=== PATIENT | female | born 1945 | race Caucasian/White ===

== ENCOUNTER 2016-07-05 13:43 | Inpatient (IN) ==
--- NOTE | 2016-07-05 14:09 | Emergency Department Note ---
Disposition Clinical Impression: Hydroureter on left Urinary tract infection Qualifiers: Urinary tract infection type: acute cystitis Hematuria presence: with hematuria Qualified Code(s): N30.01 - Acute cystitis with hematuria Disposition: Admitted As Inpatient Condition: Good Referrals: NO,PCP [Non-Partnered Physician] - Forms: Work/School Release, ED Satisfaction Letter Time of Disposition: 15:41 Abdominal Pain HPI - General Chief Complaint: ED Abdominal Pain Stated Complaint: passing kidney stones Time Seen by Provider: 07/05/16 14:07 Source: patient Mode of arrival: ambulatory Limitations: no limitations Nursing Notes Reviewed: Yes Vital Signs Reviewed: Yes - History of Present Illness Pt Subjective Complaint: flank pain Onset (ago): day(s) (1) Consistency: intermittent Location: L flank Pain Scale: 0 Quality: stabbing Radiation: LLQ Improves with: nothing Worsens with: nothing Associated symptoms: Reports: nausea, dysuria Treatments prior to arrival: none - Related Data Home Medications Medication Instructions Recorded Confirmed Diltiazem HCl [Diltiazem 24Hr Cd] 180 mg PO DAILY 01/04/15 05/23/15 Lisinopril [Zestril] 5 mg PO DAILY 01/04/15 05/23/15 Metformin [Glucophage] 500 mg PO BID 01/04/15 05/23/15 Simvastatin [Zocor] 10 mg PO HS 01/04/15 05/23/15 Allergies Allergy/AdvReac Type Severity Reaction Status Date / Time No Known Allergies Allergy Unverified 12/31/14 11:52 All systems ED: reviewed and negative except as stated. Constitutional: Denies: night sweats Cardiovascular: Denies: chest pain Gastrointestinal: Denies: diarrhea, hematemesis, melena, hematochezia Abdominal Pain PMH - Past Medical History Medical history: Reports: diabetes, hypertension Female Surgical History: Reports: other Psychiatric history: Reports: no psych history - Social History Smoking status: Never smoker Alcohol use: Reports: none Drug use: Reports: none Physical Exam - General Limitations: no limitations General appearance: alert, in no apparent distress - Head Head exam: atraumatic, normocephalic, normal inspection - Eye Eye exam: Present: normal appearance, PERRL, EOMI - Expanded Eye Exam Pupils: Left: reactive - ENT ENT exam: normal exam, normal oropharynx, mucous membranes moist - Expanded ENT Exam External ear exam: Present: normal external inspection Mouth exam: Present: normal external inspection Teeth exam: Present: normal inspection Throat exam: Present: normal inspection - Neck Neck exam: Present: normal inspection, full ROM, trachea midline - Chest Chest inspection: Present: normal inspection, symmetric chest wall rise - Respiratory Respiratory exam: Present: normal lung sounds bilaterally - Cardiovascular Cardiovascular exam: Present: regular rate, normal rhythm, normal heart sounds - Abdominal Exam Abdominal exam: Present: soft, Non-Tender. Absent: tenderness, distention, guarding, rebound, rigidity - Extremities Exam Extremities exam: Present: normal inspection, full ROM. Absent: tenderness, pedal edema - Expanded Upper Extremity Exam Shoulder exam: Present: normal inspection, full ROM Arm exam: Present: normal inspection, full ROM Elbow exam: Present: normal inspection, full ROM Forearm/Wrist exam: Present: normal inspection, full ROM Hand exam: Present: normal inspection, full ROM Vascular exam: Normal: capillary refill, radial pulse - Expanded Lower Extremity Exam Hip/Pelvis exam: Present: normal inspection, full ROM Upper leg exam: Present: normal inspection, full ROM Knee exam: Present: normal inspection, full ROM Lower leg exam: Present: normal inspection, full ROM Ankle exam: Present: normal inspection, full ROM Foot/toe exam: Present: normal inspection, full ROM Neurovascular/Tendon exam: Absent: motor deficit, sensory deficit, tendon deficit - Back Exam Back exam: Present: normal inspection, full ROM. Absent: tenderness - Neurological Exam Neurological exam: Present: alert, oriented X3 - Expanded Neurological Exam Patient oriented to: Present: person, place, time Coma Scale Eye Opening: Spontaneous Coma Scale Motor Response: Obeys Commands Coma Scale Verbal Response: Oriented Coma Scale Total: 15 - Psychiatric Psychiatric exam: Present: normal affect, normal mood - Skin Skin exam: Present: warm, dry, intact, normal color Course - Consultations Consultation #1: Dr. Potter would like to admit to the hospitalist service keep the patient nothing by mouth she will need a renal stent IV antibiotic's were given. Time: 15:39 Vital Signs Temperature 101.6 F H 07/05/16 14:01 Pulse Rate 104 07/05/16 14:01 Respiratory Rate 22 07/05/16 14:01 Blood Pressure 136/86 07/05/16 14:01 O2 Sat by Pulse Oximetry 94 07/05/16 14:01 Temperature 101.6 F H 07/05/16 14:01 Pulse Rate 87 07/05/16 15:10 Respiratory Rate 18 07/05/16 15:10 Blood Pressure 127/77 07/05/16 15:10 O2 Sat by Pulse Oximetry 97 07/05/16 15:10 Oxygen Delivery Oxygen Delivery Room Air Abdominal Pain - Differential Diagnosis Differential Diagnosis: Likely: calculus of kidney, constipation, colonic obstruction, diverticulitis, ischemic bowel, pancreatitis, small bowel obstruction - Medical Records Medical records reviewed: Yes I reviewed the patient's medical records. - Lab Data Lab results reviewed: Yes I reviewed the patient's lab results. Result diagrams: 07/05/16 14:22 07/05/16 14:22 Lab Results 07/05/16 07/05/16 07/05/16 Range/Units 14:22 14:22 14:22 WBC 12.6 H (4.3-11.1) K/mcL RBC 4.91 (3.82-4.97) M/mcL Hgb 13.8 (11.5-15.4) g/dL Hct 42.3 (35.3-44.9) % MCV 86.2 (83.0-100.0) fL MCH 28.1 (28.0-33.3) pg MCHC 32.6 (31.6-35.5) g/dL RDW 13.7 (11.5-14.5) % Plt Count 173 (140-400) K/mcL MPV 9.9 (9.4-12.4) fL Immature Gran % 0.6 (0-4) % Seg Neutrophils % 87.2 % Lymphocytes % 6.1 % Monocytes % 5.9 % Eosinophils % 0.0 % Basophils % 0.2 % Neutrophils # 11.0 H (1.6-8.9) K/mcL Lymphocytes # 0.8 (0.6-4.6) K/mcL Monocytes # 0.7 (0.0-1.3) K/mcL Eosinophils # 0.0 (0.0-0.6) K/mcL Basophils # 0.0 (0.0-0.2) K/mcL Sodium 138 (136-145) mEq/L Potassium 3.5 (3.5-4.5) mEq/L Chloride 102 (98-109) mEq/L Carbon Dioxide 26 (19-29) mEq/L BUN 16 (7-20) mg/dL Creatinine 0.82 (0.57-1.11) mg/dL Est GFR ( Amer) > 60 (> 60) Est GFR (Non-Af Amer) > 60 (> 60) BUN/Creatinine Ratio 20 (6-26) Glucose 122 H (70-99) mg/dL Calculated Osmolality 288 (280-300) Lactic Acid 1.2 (0.5-2.2) mmol/L Calcium 9.7 (8.6-10.8) mg/dL Total Bilirubin 1.4 H (0.2-1.2) mg/dL Direct Bilirubin 0.6 H (0.0-0.5) mg/dL Indirect Bilirubin 0.8 (0.0-1.2) mg/dL AST 18 (5-34) Units/L ALT 25 (0-55) Units/L Alkaline Phosphatase 83 (38-126) Units/L Serum Total Protein 7.4 (6.0-8.3) g/dL Albumin 3.7 (3.5-5.0) g/dL Globulin 3.7 H (2.4-3.5) g/dL Albumin/Globulin Ratio 1.0 L (1.1-2.2) Amylase 22 L (25-125) Units/L Lipase 10 (8-78) Units/L Urine Color (Yellow) Urine Clarity (Clear) Urine pH (5.0-8.0) pH Units Ur Specific [place] (1.010-1.025) Urine Protein (Neg-Trace) mg/dL Urine Glucose (UA) (Normal) mg/dL Urine Ketones (Negative) mg/dL Urine Blood (Negative) Urine Nitrite (Negative) Urine Bilirubin (Negative) Urine Urobilinogen (Normal) mg/dL Ur Leukocyte Esterase (Negative) Urine Microscopic RBC (0-3) per hpf Urine Microscopic WBC (0-3) per hpf Ur Squamous Epith Cells (None-Few) per lpf Urine Bacteria (None-Few) per hpf Hyaline Casts (None-Few) per lpf Ur Culture Indicated? (NO) 07/05/16 Range/Units 14:32 WBC (4.3-11.1) K/mcL RBC (3.82-4.97) M/mcL Hgb (11.5-15.4) g/dL Hct (35.3-44.9) % MCV (83.0-100.0) fL MCH (28.0-33.3) pg MCHC (31.6-35.5) g/dL RDW (11.5-14.5) % Plt Count (140-400) K/mcL MPV (9.4-12.4) fL Immature Gran % (0-4) % Seg Neutrophils % % Lymphocytes % % Monocytes % % Eosinophils % % Basophils % % Neutrophils # (1.6-8.9) K/mcL Lymphocytes # (0.6-4.6) K/mcL Monocytes # (0.0-1.3) K/mcL Eosinophils # (0.0-0.6) K/mcL Basophils # (0.0-0.2) K/mcL Sodium (136-145) mEq/L Potassium (3.5-4.5) mEq/L Chloride (98-109) mEq/L Carbon Dioxide (19-29) mEq/L BUN (7-20) mg/dL Creatinine (0.57-1.11) mg/dL Est GFR ( Amer) (> 60) Est GFR (Non-Af Amer) (> 60) BUN/Creatinine Ratio (6-26) Glucose (70-99) mg/dL Calculated Osmolality (280-300) Lactic Acid (0.5-2.2) mmol/L Calcium (8.6-10.8) mg/dL Total Bilirubin (0.2-1.2) mg/dL Direct Bilirubin (0.0-0.5) mg/dL Indirect Bilirubin (0.0-1.2) mg/dL AST (5-34) Units/L ALT (0-55) Units/L Alkaline Phosphatase (38-126) Units/L Serum Total Protein (6.0-8.3) g/dL Albumin (3.5-5.0) g/dL Globulin (2.4-3.5) g/dL Albumin/Globulin Ratio (1.1-2.2) Amylase (25-125) Units/L Lipase (8-78) Units/L Urine Color Yellow (Yellow) Urine Clarity Cloudy A (Clear) Urine pH 6.5 (5.0-8.0) pH Units Ur Specific [place] 1.017 (1.010-1.025) Urine Protein 30 H (Neg-Trace) mg/dL Urine Glucose (UA) Normal (Normal) mg/dL Urine Ketones Negative (Negative) mg/dL Urine Blood Small H (Negative) Urine Nitrite Negative (Negative) Urine Bilirubin Negative (Negative) Urine Urobilinogen Normal (Normal) mg/dL Ur Leukocyte Esterase Large H (Negative) Urine Microscopic RBC 3-5 H (0-3) per hpf Urine Microscopic WBC TNTC H (0-3) per hpf Ur Squamous Epith Cells Many H (None-Few) per lpf Urine Bacteria Many H (None-Few) per hpf Hyaline Casts None Seen (None-Few) per lpf Ur Culture Indicated? YES A (NO) - Radiology Data Radiology results reviewed: Yes I reviewed the patient's radiology results.
[2016-07-05] MEDS ORDERED: 0.9 % Sodium Chloride 1,000 ML IVC ONE (14:17)
[2016-07-05] MEDS ORDERED: Ondansetron 4 MG/2 ML VIAL IVP ONE ×2 (14:17→17:05)
[2016-07-05 14:31] LABS: Basophils % 0.2 %; Hematocrit 42.3 % (35.3-44.9); Hemoglobin 13.8 g/dL (11.5-15.4); Immature Granulocytes % 0.6 % (0-4); Lymphocytes # 0.8 K/mcL (0.6-4.6); Lymphocytes % 6.1 %; Mean Corpuscular HGB Conc 32.6 g/dL (31.6-35.5); Mean Corpuscular Hemoglobin 28.1 pg (28.0-33.3); Mean Corpuscular Volume 86.2 fL (83.0-100.0); Mean Platelet Volume 9.9 fL (9.4-12.4); Monocytes # 0.7 K/mcL (0.0-1.3); Monocytes % 5.9 %; Platelet Count 173 K/mcL (140-400); Red Blood Count 4.91 M/mcL (3.82-4.97); Red Cell Distribution Width 13.7 % (11.5-14.5); Segmented Neutrophils % 87.2 %
[2016-07-05 14:41] LABS: Bilirubin,Urine Negative (Negative); Blood,Urine Small (Negative); Clarity,Urine Cloudy (Clear); Color,Urine Yellow (Yellow); Glucose,Urine (UA) Normal (Normal); Ketones,Urine Negative (Negative); Leukocyte Esterase,Urine Large (Negative); Nitrite,Urine Negative (Negative); PH,Urine 6.5 pH Units (5.0-8.0); Protein,Urine 30 mg/dL (Neg-Trace); Specific Gravity,Urine 1.017 (1.010-1.025); Urobilinogen,Urine Normal (Normal)
[2016-07-05 14:44] LABS: Bacteria,Urine Many per hpf (None-Few); Hyaline Casts,Urine None Seen per lpf (None-Few); Squamous Epithelial Cell,Urine Many per lpf (None-Few); WBC,Urine TNTC per hpf (0-3)
[2016-07-05 14:45] LABS: Alanine Aminotransferase 25 Units/L (0-55); Albumin 3.7 g/dL (3.5-5.0); Alkaline Phosphatase 83 Units/L (38-126); Amylase 22 Units/L (25-125); Aspartate Amino Transferase 18 Units/L (5-34); BUN/Creatinine Ratio 20 (6-26); Bilirubin,Direct 0.6 mg/dL (0.0-0.5); Bilirubin,Indirect 0.8 mg/dL (0.0-1.2); Bilirubin,Total 1.4 mg/dL (0.2-1.2); Blood Urea Nitrogen 16 mg/dL (7-20); Calcium 9.7 mg/dL (8.6-10.8); Carbon Dioxide 26 mEq/L (19-29); Chloride 102 mEq/L (98-109); Globulin 3.7 g/dL (2.4-3.5); Glucose 122 mg/dL (70-99); Lipase 10 Units/L (8-78); Osmolality,Calculated 288 (280-300); Potassium 3.5 mEq/L (3.5-4.5); Sodium 138 mEq/L (136-145); Total Protein 7.4 g/dL (6.0-8.3); eGFR For African Americans > 60 (> 60); eGFR For Non-African Americans > 60 (> 60)
[2016-07-05] MEDS ORDERED: Acetaminophen 325 MG TABLET PO ONE (15:38)
--- NOTE | 2016-07-05 16:04 | Internal Med History&Physical ---
Date of Encounter: 07/05/16 Time of Encounter: 16:00 Assessment and Plan (1) Urinary tract infection Current visit: Yes Status: Acute Patient with signs of acute urinary tract infection related to possible recently passed stone and nephrolithiasis with hydroureter and hydronephrosis. We will treat with IV antibiotics. Follow urine cultures. IV hydration. Qualifiers: Urinary tract infection type: acute pyelonephritis Qualified Code(s): N10 - Acute pyelonephritis (2) Hydronephrosis of left kidney Current visit: Yes Status: Acute Most likely related to recently passed kidney stone. Urology consulted follow recommendations. (3) Diabetes Current visit: Yes Status: Chronic Patient with chronic diabetes. Will place on diabetic diet when patient is able to eat. Monitor blood sugars closely. Sliding scale insulin. Qualifiers: Diabetes mellitus type: type 2 Diabetes mellitus complication status: without complication Diabetes mellitus chcf insulin use: without chcf use Qualified Code(s): E11.9 - Type 2 diabetes mellitus without complications (4) Hyperlipemia Current visit: No Status: Chronic Continue simvastatin. Qualifiers: Hyperlipidemia type: mixed hyperlipidemia Qualified Code(s): E78.2 - Mixed hyperlipidemia (5) Hydroureter on left Current visit: Yes Status: Acute Urology consulted. We will follow recommendations. Internal Medicine - H&P: HPI Chief complaint: Left flank pain Admitted From: Emergency Dept Plans for Post Hospital Care: Home History of present illness: Ms. Sewell is a 70 year old female patient with a history of diabetes mellitus type 2, hypertension, hyperlipidemia, prior nephrolithiasis presented to the ER with complaints of left-sided flank pain. This has been going on for 2 days with progressive worsening. Since this morning she is also been feeling feverish along with chills. She denies any hematuria or dysuria. She feels nauseated. Poor appetite as a result of pain. She has not had any kidney stones for a few years now. She is not on any medications to prevent nephrolithiasis either. Past Med Surg Social Fam HX - Past Medical History Attestation: Yes The following information was validated with the patient. Source: patient Medical history: diabetes, hyperlipidemia, hypertension, other (Nephrolithiasis) Psychiatric history: no psych history - Social History Smoking Status: Never smoker Smokeless Tobacco Status: No Alcohol use: none Drug use: none - Family History Father Hx Family Cardiac Disorders: Yes - Additional Family History Additional family history: Reviewed and found to be noncontributory at this time Internal Medicine - H&P: Meds Diltiazem HCl [Diltiazem 24Hr Cd] 180 mg PO DAILY 01/04/15 [History] Lisinopril [Zestril] 5 mg PO DAILY 01/04/15 [History] Metformin [Glucophage] 500 mg PO BID 01/04/15 [History] Simvastatin [Zocor] 10 mg PO HS 01/04/15 [History] Allergies No Known Allergies Allergy (Unverified 12/31/14 11:52) All Systems PM: A 10-system review of systems was performed and is negative for pertinent findings except as documented above in the HPI. - Constitutional Constitutional: anorexia, chills, fever(s), malaise, no night sweats - EENT Eyes: no change in vision, no discharge, no pain, no photophobia Ears: no ear discharge, no ear pain, no tinnitus Nose, mouth and throat: no dysphagia, no nasal discharge, no neck pain, no sore throat - Cardiovascular Cardiovascular ROS IM: no chest pain, no diaphoresis, no dyspnea, no lightheadedness, no palpitations, no syncope - Respiratory Respiratory: no cough, no dyspnea, no wheezing, no excessive phlegm production - Gastrointestinal Gastrointestinal: no abdominal pain, no diarrhea, no hematemesis, no hematochezia, no melena, no nausea, no vomiting - Genitourinary Genitourinary: flank pain (Left), no change in urinary stream, no dysuria, no hematuria - Musculoskeletal Musculoskeletal ROS IM: no numbness, no tingling - Integumentary Integumentary IM: no rash, no unusual bruising - Neurological Neurological ROS: no confusion, no convulsions, no focal weakness, no numbness, no tingling, no tremor(s) - Hematologic/Lymphatic Hematologic/Lymphatic: no easy bruising - Constitutional Vitals: Temp Pulse Resp BP Pulse Ox 101.6 F H 87 18 127/77 97 07/05/16 14:01 07/05/16 15:10 07/05/16 15:10 07/05/16 15:10 07/05/16 15:10 General appearance: Present: cooperative, A&O X 3, answers questions appropriately - Neck Neck exam general surgery: Present: supple, trachea midline. Absent: lymphadenopathy - Respiratory Respiratory exam: Present: CTAB. Absent: accessory muscle use, rales, rhonchi, wheezes - Cardiovascular Cardiovascular exam: Present: RRR, +S1, +S2. Absent: diastolic murmur, gallop, rubs, systolic murmur - GI/Abdominal GI/Abdominal exam: Present: normal bowel sounds, soft, no peritoneal signs. Absent: distended, tenderness Additional comments: Left upper quadrant tenderness - Additional comments: No CVA tenderness - Extremities Exam Extremities exam: Present: warm, radial pulses palpable and symetrical. Absent : calf tenderness, cyanotic, pedal edema - Neurological Exam Neurological exam: Present: CN II-XII intact, oriented X3, no focal deficits. Absent: facial droop, speech deficit - Skin Skin exam: Present: dry, intact Internal Med - H&P Results - Labs CBC & Chem 7: 07/05/16 14:22 07/05/16 14:22 Labs: Short CBC 07/05/16 Range/Units 14:22 WBC 12.6 H (4.3-11.1) K/mcL Hgb 13.8 (11.5-15.4) g/dL Hct 42.3 (35.3-44.9) % Plt Count 173 (140-400) K/mcL Neutrophils # 11.0 H (1.6-8.9) K/mcL BMP 07/05/16 14:22 Sodium 138 Potassium 3.5 Chloride 102 Carbon Dioxide 26 BUN 16 Creatinine 0.82 Glucose 122 H Calcium 9.7 Liver Function 07/05/16 Range/Units 14:22 Total Bilirubin 1.4 H (0.2-1.2) mg/dL Direct Bilirubin 0.6 H (0.0-0.5) mg/dL AST 18 (5-34) Units/L ALT 25 (0-55) Units/L Alkaline Phosphatase 83 (38-126) Units/L Albumin 3.7 (3.5-5.0) g/dL Urine 07/05/16 Range/Units 14:32 Urine Color Yellow (Yellow) Urine Clarity Cloudy A (Clear) Urine pH 6.5 (5.0-8.0) pH Units Ur Specific [place] 1.017 (1.010-1.025) Urine Protein 30 H (Neg-Trace) mg/dL Urine Glucose (UA) Normal (Normal) mg/dL - Impressions ITS Impressions Abdomen/Pelvis CT 07/05/16 14:20 IMPRESSION: 1. Moderate to severe left-sided hydronephrosis and moderate left hydroureter. No definite ureteral stone is identified. Innumerable pelvic phleboliths do limit evaluation of the distal left ureter. Findings may potentially reflect recently passed stone. 2. Bilateral nephrolithiasis. 3. Cholelithiasis with 3 mm stone identified at the level of the proximal common bile duct compatible with choledocholithiasis. No biliary ductal dilatation identified. 4. Hepatic steatosis. 5. Diverticulosis without evidence for diverticulitis. D/ / Brayden Knutson MD / Brayden Knutson MD Interpreting Provider: Brayden Knutson MD - Attending Attestation This document has been at least partially created by [employer] voice recognition technology by Dr. Bowman. Errors in grammar, wording or other phrases may exist. If errors are found after the documentation is signed, they will be addressed individually in the addendum section of this document when appropriate.
[2016-07-05] MEDS ORDERED: Ondansetron 4 MG/2 ML VIAL IVP PRN ×2 (16:11→18:18)
[2016-07-05] MEDS ORDERED: *HR* Morphine 2 MG/ML SYRINGE IVP PRN ×3 (16:11→18:18)
[2016-07-05] MEDS ORDERED: Naloxone 0.4 MG/ML INJ IVP PRN ×2 (16:11→18:18)
[2016-07-05] MEDS ORDERED: *HR* Dextrose 50 % in Water (Syg) 50 ML SYRINGE IVP PRN ×2 (16:13→18:18)
[2016-07-05] MEDS ORDERED: D5% in Water 1,000 ML IVC PRN ×2 (16:13→18:18)
[2016-07-05] MEDS ORDERED: Dextrose Gel 15 GM PO PRN ×4 (16:13→18:18)
[2016-07-05] MEDS ORDERED: 0.9 % Sodium Chloride 1,000 ML IVC SCH (16:15)
[2016-07-05] MEDS ORDERED: *HR* FentaNYL (PF) 100 MCG/2 ML VIAL ONE (16:23)
[2016-07-05] MEDS ORDERED: *HR* Succinylcholine 200 MG/10 ML VIAL IVP ONE (16:24)
[2016-07-05] MEDS ORDERED: *HR* Propofol 200 MG/20 ML VIAL IVP ONE (16:24)
[2016-07-05] MEDS ORDERED: Lidocaine -MPF 2% 2 ML VIAL ONE (16:24)
--- NOTE | 2016-07-05 16:38 | Urology - Consult Note ---
Date of Encounter: 07/05/16 Time of Encounter: 16:35 - Assessment and Plan (1) Ureteral stone Current Visit: Yes Status: Acute Assessment and plan: 70 year old woman presents with left flank pain and fevers. CT shows a distal left ureteral stone and evidence of left hydronephrosis. I recommend proceeding with a cystoscopy and left ureteral stent placement. If the stone is quite distal, we will try to do distal ureteroscopy and stone extraction using the laser. I informed her of the risks of the surgery which include, but are not limited to bleeding, infection, injury to other structures , need for further procedures, stent irritation, need for open repair, residual stones, need for nephrostomy tube, and the risk of anesthesia. She is willing to proceed. (2) Urinary tract infection Current Visit: Yes Status: Acute Assessment and plan: Patient received Ceftriaxone. Will follow up urine cultures. Qualifiers: Urinary tract infection type: acute pyelonephritis Qualified Code(s): N10 - Acute pyelonephritis Urology CN:HPI Consult date: 07/05/16 Reason for consult Urology: Other (uti, ureteral stone) Requesting physician: Solomon Comer History of present illness: 70 year old woman with a known history of nephrolithiasis presents with a 1-2 day history of left lower quadrant pain. It became more severe today. She noted some nausea and vomiting. The pain is sharp and radiates to the groin. She typically follows with Dr. Doshi for her sotne issues. Pain medication has improved the pain. She reports some subjective chills and has a fever. I reviewed her CT scan which shows left hydroureteronephrosis with a distal left ureteral stone. There are a lot of phleboliths present. Past Med Surg Social Fam HX - Past Medical History Medical history: diabetes, hyperlipidemia, hypertension, other (Nephrolithiasis) Psychiatric history: no psych history - Social History Smoking Status: Never smoker Smokeless Tobacco Status: No Alcohol use: none Drug use: none - Family History Father Hx Family Cardiac Disorders: Yes Medications and Allergies Metformin [Glucophage] 500 mg PO BID 01/04/15 [History] Simvastatin [Zocor] 10 mg PO HS 01/04/15 [History] Diltiazem CD (24hr) [Cardizem CD] 120 mg PO DAILY 07/05/16 [History] Lisinopril [Zestril] 20 mg PO DAILY 07/05/16 [History] Allergies No Known Allergies Allergy (Unverified 12/31/14 11:52) Review of Systems - Constitutional chills, fever(s) - EENT Nose, mouth and throat: no dizziness - Cardiovascular no chest pain - Respiratory no dyspnea - Gastrointestinal nausea, no vomiting - Genitourinary Genitourinary: flank pain, no hematuria - Musculoskeletal no back pain - Integumentary no erythema, no rash - Neurological no weakness - Psychiatric no suicidal ideation - Hematologic/Lymphatic no easy bleeding - Allergic/Immunologic no wheezing Exam Initial Vital Signs Temp Pulse Resp BP Pulse Ox 101.6 F H 104 22 136/86 94 07/05/16 14:01 07/05/16 14:01 07/05/16 14:01 07/05/16 14:01 07/05/16 14:01 - General physical appearance Present: well developed, well nourished, no distress - Eyes Absent: icteric - ENT Present: normal mucosa - Neck Present: trachea midline - Respiratory Present: normal respiratory effort - Cardiovascular Cardiovascular exam IM: RRR - Abdomen Abdomen: Present: soft Urology Results - Labs 07/05/16 14:22 07/05/16 14:22 Abnormal lab results WBC 12.6 K/mcL (4.3-11.1) H 07/05/16 14:22 Neutrophils # 11.0 K/mcL (1.6-8.9) H 07/05/16 14:22 Glucose 122 mg/dL (70-99) H 07/05/16 14:22 Total Bilirubin 1.4 mg/dL (0.2-1.2) H 07/05/16 14:22 Direct Bilirubin 0.6 mg/dL (0.0-0.5) H 07/05/16 14:22 Globulin 3.7 g/dL (2.4-3.5) H 07/05/16 14:22 Albumin/Globulin Ratio 1.0 (1.1-2.2) L 07/05/16 14:22 Amylase 22 Units/L (25-125) L 07/05/16 14:22 Urine Clarity Cloudy (Clear) A 07/05/16 14:32 Urine Protein 30 mg/dL (Neg-Trace) H 07/05/16 14:32 Urine Blood Small (Negative) H 07/05/16 14:32 Ur Leukocyte Esterase Large (Negative) H 07/05/16 14:32 Urine Microscopic RBC 3-5 per hpf (0-3) H 07/05/16 14:32 Urine Microscopic WBC TNTC per hpf (0-3) H 07/05/16 14:32 Ur Squamous Epith Cells Many per lpf (None-Few) H 07/05/16 14:32 Urine Bacteria Many per hpf (None-Few) H 07/05/16 14:32 Ur Culture Indicated? YES (NO) A 07/05/16 14:32 Diabetes panel 07/05/16 Range/Units 14:22 Sodium 138 (136-145) mEq/L Potassium 3.5 (3.5-4.5) mEq/L Chloride 102 (98-109) mEq/L Carbon Dioxide 26 (19-29) mEq/L BUN 16 (7-20) mg/dL Creatinine 0.82 (0.57-1.11) mg/dL Glucose 122 H (70-99) mg/dL Calcium 9.7 (8.6-10.8) mg/dL AST 18 (5-34) Units/L ALT 25 (0-55) Units/L Alkaline Phosphatase 83 (38-126) Units/L Albumin 3.7 (3.5-5.0) g/dL Calcium panel 07/05/16 Range/Units 14:22 Calcium 9.7 (8.6-10.8) mg/dL Albumin 3.7 (3.5-5.0) g/dL Pituitary panel 07/05/16 Range/Units 14:22 Sodium 138 (136-145) mEq/L Potassium 3.5 (3.5-4.5) mEq/L Chloride 102 (98-109) mEq/L Carbon Dioxide 26 (19-29) mEq/L BUN 16 (7-20) mg/dL Creatinine 0.82 (0.57-1.11) mg/dL Glucose 122 H (70-99) mg/dL Calcium 9.7 (8.6-10.8) mg/dL Adrenal panel 07/05/16 Range/Units 14:22 Sodium 138 (136-145) mEq/L Potassium 3.5 (3.5-4.5) mEq/L Chloride 102 (98-109) mEq/L Carbon Dioxide 26 (19-29) mEq/L BUN 16 (7-20) mg/dL Creatinine 0.82 (0.57-1.11) mg/dL Glucose 122 H (70-99) mg/dL Calcium 9.7 (8.6-10.8) mg/dL Total Bilirubin 1.4 H (0.2-1.2) mg/dL AST 18 (5-34) Units/L ALT 25 (0-55) Units/L Alkaline Phosphatase 83 (38-126) Units/L Albumin 3.7 (3.5-5.0) g/dL All other labs normal. - Imaging CT scan - abdomen: report reviewed, image reviewed CT scan - pelvis: report reviewed, image reviewed Consult Discharge Plan - Plan Referrals: NO,PCP [Non-Partnered Physician] -
--- NOTE | 2016-07-05 17:00 | Anesthesia Evaluation PreOp ---
Date of Encounter: 07/05/16 Time of Encounter: 16:58 - Past History Planned Operation: Cystoscopy Cardiac History: HTN, Hyperlipidemia, Arrhythmia (H/O A-Fib S/P alation) Pulmonary History: Denies Any Significant HX DELIVERY CLERK History: Denies Any Significant HX Other Medical History: Renal (kidney stones), Diabetes Type II Anesthesia History: No Prior Anesthetic Complications, Past Anesthesia Alcohol Use: none Drug use: none Medications and Allergies Metformin [Glucophage] 500 mg PO BID 01/04/15 [History] Simvastatin [Zocor] 10 mg PO HS 01/04/15 [History] Diltiazem CD (24hr) [Cardizem CD] 120 mg PO DAILY 07/05/16 [History] Lisinopril [Zestril] 20 mg PO DAILY 07/05/16 [History] Allergies No Known Allergies Allergy (Unverified 12/31/14 11:52) - Meds/Allergy Pre-op Review Medications Reviewed: Yes Allergies Reviewed: Yes Beta Blockers on Current Med List: No Anesthesia Results - Labs 07/05/16 14:22 07/05/16 14:22 - Imaging EKG: report reviewed (11/22/2015 SR, IRBBB, low voltage precordial leads, inferior ST changes) Additional studies: 05/23/2015 Echo LVEF 60-65% mild LV diastolic dysfunction mild AR and TR mild pulmonary HTN 05/23/2015 Stress LVEF>70% perfusion imaging was negative for ischemia or infarct Anesthesia Exam Vital Signs/O2 Sat, Most Current Temp Pulse Resp BP Pulse Ox 101.6 F H 87 18 120/69 97 07/05/16 14:01 07/05/16 15:10 07/05/16 16:43 07/05/16 16:43 07/05/16 15:10 Blood glucose: 133 Height: 5'3''/1.6 m Weight: 150 lbss/68 kg NPO (# of Hours): 6 Pain Scale: 0 Pain Scale Used: Numeric (1 - 10) - HEENT Pupil (Motor): EOMI Mallampati: II Teeth: Edentulous Oral Opening: Less than or equal to 3 - DELIVERY CLERK LOC: Oriented DELIVERY CLERK Motor: Normal RUE, Normal LUE, Normal RLE, Normal LLE, Normal Face DELIVERY CLERK Sensory: Normal: RUE, LUE, RLE, LLE, Face - Cardiac Rhythm: Regular Murmur: None - Pulmonary Breath Sounds: bilateral Clear Respiratory Effort: Symmetrical Anesthesia Assess/Plan ASA Score: 3 Modified [place] Scale for Level of Consciousness: Cooperative, oriented, and tranquil Anesthetic Plan: General Monitoring Plan: Standard Monitors Recovery Plan: PACU
--- NOTE | 2016-07-05 17:05 | Operative Note ---
Date of procedure: 07/05/16 Pre-op diagnosis: Left distal ureteral stone Post-op diagnosis: same Procedure: Left ureteroscopy, basket stone extraction, and left ureteral stent placement. Implants: 6 [place] by 24 cm double-J stent. 16 [place] Head catheter. Complications: None. Anesthesia: DAT Surgeon: Wilfrido Potter Estimated blood loss (cc): 1 Specimen: Left renal aspirate for culture. Condition: stable Disposition: PACU Procedure in Detail: Indications: Dixie is a 70-year-old female who presents with left flank pain. A CT scan showed a distal left ureteral stone and hydronephrosis. She has a temperature. She elected to undergo a cystoscopy and left ureteral stent placement, with a possible possible left ureteroscopy, laser lithotripsy and stone extraction. She was aware of the risks of the procedure including but not limited to bleeding, infection, injury to other structures, need for further procedures, need for stent, stent irritation, incomplete treatment, and the risk of anesthesia. She is willing to proceed. Procedure: After informed consent was obtained the patient was brought back to the operating room and placed in supine position. A time out was performed. General anesthesia was administered and an endotracheal tube was placed. She was then placed in the lithotomy position. She was prepped and draped in the usual sterile fashion. Cystoscopy was then performed. The anterior urethra was normal. There was no evidence of bladder tumors. The ureteral orifices were in the normal orthotopic position. There was no duplication of the ureteral orifices. The zip wire was placed in the left ureteral orifice, and it was brought into the kidney under fluoroscopic guidance. I then advanced the 5 [place]ian open-ended catheter over the wire into the kidney. An aspirate of the urine from the left kidney was obtained. The urine was clear yellow. The wire was replaced. The stone was quite distal, and I felt to be reasonable to treat it. The semirigid ureteroscope into the ureter. The stone was fairly small and I then basket extracted it. A 6 [place] by 24cm JJ stent was then placed with good curl seen in the kidney and the bladder. The dangle string was removed. A 16 [place] Head catheter was then placed. The patient was then awakened from general anesthesia and brought to recovery room in good condition. All sponge, needle, and instrument counts were correct
[2016-07-05] MEDS ORDERED: Dexamethasone 4 MG/ML VIAL ONE (17:18)
[2016-07-05] MEDS ORDERED: Ondansetron 4 MG/2 ML VIAL ONE (17:37)
[2016-07-05] MEDS ORDERED: *HR* Heparin 5,000 UNIT/ML VIAL SQ SCH (18:00)
--- NOTE | 2016-07-05 18:12 | Anesthesia Evaluation Post Op ---
Date of Encounter: 07/05/16 Time of Encounter: 18:12 - Vital Signs Vital Signs: Vital Signs/O2 Sat, Most Current Temp Pulse Resp BP Pulse Ox 98.0 F 84 14 108/66 94 07/05/16 17:45 07/05/16 18:05 07/05/16 18:05 07/05/16 18:05 07/05/16 18:05 - Lungs Lungs: Clear Ascult./Percussion - Airway Airway: Non-obstructed - Cardiovascular Regular Rate - Mental Status Mental Status: Alert & Oriented, Answers Appropriately - Pain Pain Scale: 3 Pain Scale used: Numeric (1 - 10) - Nausea Vomiting Nausea Vomiting: Not Present - Hydration Hydration: Ice chips, Head catheter - Discharge PostOp Status: Transfer Patient to floor
[2016-07-05] MEDS ORDERED: *HR* HYDROcodone/Acet 5/325 mg TABLET PO PRN (18:18)
[2016-07-05] MEDS ORDERED: Insulin LISPRO 300 UNITS/3 ML VIAL SQ SCH ×3 (20:00→21:00)
[2016-07-05] MEDS: 0.9 % Sodium Chloride 1,000 ML IVC SCH (21:28)
[2016-07-05] MEDS: Insulin LISPRO 300 UNITS/3 ML VIAL SQ SCH (21:28)
[2016-07-06] MEDS: Insulin LISPRO 300 UNITS/3 ML VIAL SQ SCH ×4 (00:30→17:35)
[2016-07-06 03:51] LABS: Basophils % 0.1 %; Hematocrit 39.9 % (35.3-44.9); Hemoglobin 12.7 g/dL (11.5-15.4); Immature Granulocytes % 0.7 % (0-4); Lymphocytes # 0.7 K/mcL (0.6-4.6); Lymphocytes % 8.9 %; Mean Corpuscular HGB Conc 31.8 g/dL (31.6-35.5); Mean Corpuscular Hemoglobin 27.9 pg (28.0-33.3); Mean Corpuscular Volume 87.5 fL (83.0-100.0); Mean Platelet Volume 10.1 fL (9.4-12.4); Monocytes # 0.2 K/mcL (0.0-1.3); Monocytes % 2.3 %; Neutrophils # 7.2 K/mcL (1.6-8.9); Platelet Count 158 K/mcL (140-400); Red Blood Count 4.56 M/mcL (3.82-4.97); Red Cell Distribution Width 13.8 % (11.5-14.5)
[2016-07-06 04:03] LABS: BUN/Creatinine Ratio 17 (6-26); Blood Urea Nitrogen 13 mg/dL (7-20); Calcium 8.8 mg/dL (8.6-10.8); Carbon Dioxide 25 mEq/L (19-29); Chloride 109 mEq/L (98-109); Glucose 232 mg/dL (70-99); Osmolality,Calculated 298 (280-300); Potassium 3.5 mEq/L (3.5-4.5); Sodium 140 mEq/L (136-145); eGFR For African Americans > 60 (> 60); eGFR For Non-African Americans > 60 (> 60)
[2016-07-06] MEDS: *HR* Heparin 5,000 UNIT/ML VIAL SQ SCH ×2 (05:01→17:35)
[2016-07-06] MEDS: 0.9 % Sodium Chloride 1,000 ML IVC SCH ×3 (06:18→22:11)
--- NOTE | 2016-07-06 06:50 | Urology Progress Note ---
Date of Encounter: 07/06/16 Time of Encounter: 06:48 - Assessment and Plan (1) Ureteral stone Current Visit: Yes Status: Acute Assessment and plan: s/p left ureteroscopy, stone extraction, and stent. POD #1. 1. d/c diaz. 2. await urine culture results. 3. Continue IV antibiotics. 4. will follow along. (2) Urinary tract infection Current Visit: Yes Status: Acute Qualifiers: Urinary tract infection type: acute pyelonephritis Qualified Code(s): N10 - Acute pyelonephritis Progress Note Narrative: Doing well after left ureteroscopy and stone extraction with stent. No fevers overnight. WBC improved. Feeling better today. Objective Initial Vital Signs Temp Pulse Resp BP Pulse Ox 101.6 F H 104 22 136/86 94 07/05/16 14:01 07/05/16 14:01 07/05/16 14:01 07/05/16 14:01 07/05/16 14:01 - General physical appearance Present: well developed, well nourished, no distress - Respiratory Present: normal respiratory effort - Abdomen Present: soft - Labs 07/06/16 03:14 07/06/16 03:14 Diabetes panel 07/06/16 Range/Units 03:14 Sodium 140 (136-145) mEq/L Potassium 3.5 (3.5-4.5) mEq/L Chloride 109 (98-109) mEq/L Carbon Dioxide 25 (19-29) mEq/L BUN 13 (7-20) mg/dL Creatinine 0.76 (0.57-1.11) mg/dL Glucose 232 H (70-99) mg/dL Calcium 8.8 (8.6-10.8) mg/dL Calcium panel 07/06/16 Range/Units 03:14 Calcium 8.8 (8.6-10.8) mg/dL Pituitary panel 07/06/16 Range/Units 03:14 Sodium 140 (136-145) mEq/L Potassium 3.5 (3.5-4.5) mEq/L Chloride 109 (98-109) mEq/L Carbon Dioxide 25 (19-29) mEq/L BUN 13 (7-20) mg/dL Creatinine 0.76 (0.57-1.11) mg/dL Glucose 232 H (70-99) mg/dL Calcium 8.8 (8.6-10.8) mg/dL Adrenal panel 07/06/16 Range/Units 03:14 Sodium 140 (136-145) mEq/L Potassium 3.5 (3.5-4.5) mEq/L Chloride 109 (98-109) mEq/L Carbon Dioxide 25 (19-29) mEq/L BUN 13 (7-20) mg/dL Creatinine 0.76 (0.57-1.11) mg/dL Glucose 232 H (70-99) mg/dL Calcium 8.8 (8.6-10.8) mg/dL Consult Discharge Plan - Plan Referrals: Terence Padilla MD [Primary Care Provider] -
[2016-07-06] MEDS: Lisinopril 20 MG TABLET PO SCH (08:14)
[2016-07-06] MEDS: Diltiazem CD (24hr) 120 MG CAPSULE PO SCH (08:15)
[2016-07-06] MEDS ORDERED: Dextrose Gel 15 GM PO PRN ×2 (08:25)
[2016-07-06] MEDS ORDERED: D5% in Water 1,000 ML IVC PRN (08:25)
[2016-07-06] MEDS ORDERED: *HR* Dextrose 50 % in Water (Syg) 50 ML SYRINGE IVP PRN (08:25)
[2016-07-06] MEDS ORDERED: Lisinopril 20 MG TABLET PO SCH (09:00)
[2016-07-06] MEDS ORDERED: Diltiazem CD (24hr) 120 MG CAPSULE PO SCH (09:00)
[2016-07-06] MEDS ORDERED: Insulin LISPRO 300 UNITS/3 ML VIAL SQ SCH ×2 (11:30→14:15)
--- NOTE | 2016-07-06 13:39 | Internal Med Progress Note ---
Date of Encounter: 07/06/16 Time of Encounter: 09:45 - Assessment and plan (1) Sepsis Current Visit: Yes Status: Suspected Assessment and plan: Due to acute pyelonephritis. Follow cultures. Qualifiers: Sepsis type: Escherichia coli Qualified Code(s): A41.51 - Sepsis due to Escherichia coli [E. coli] (2) Urinary tract infection Current Visit: Yes Status: Acute Assessment and plan: Due to gram-negative rods per urine culture. We will follow culture results. Related to renal calculi. Continue IV antibiotics Qualifiers: Urinary tract infection type: acute pyelonephritis Qualified Code(s): N10 - Acute pyelonephritis (3) Hydronephrosis of left kidney Current Visit: Yes Status: Acute Assessment and plan: Treated with ureteroscopy and basket stone retrieval with ureteral stent placement (4) Diabetes Current Visit: Yes Status: Chronic Assessment and plan: Remains uncontrolled. We will increase insulin coverage. Qualifiers: Diabetes mellitus type: type 2 Diabetes mellitus complication status: without complication Diabetes mellitus terminal supervisor insulin use: without terminal supervisor use Qualified Code(s): E11.9 - Type 2 diabetes mellitus without complications (5) Hyperlipemia Current Visit: No Status: Chronic Assessment and plan: Continue statin Qualifiers: Hyperlipidemia type: mixed hyperlipidemia Qualified Code(s): E78.2 - Mixed hyperlipidemia (6) Hydroureter on left Current Visit: Yes Status: Acute Assessment and plan: Treated with ureteral stent placement - Subjective Interval history: Patient is feeling much better today. Pain has mostly subsided. She has not had any fever chills or night sweats overnight. She underwent cystoscopy with basket extraction of stones yesterday and left ureteral stent placement. Doing well postprocedure. no reported hematuria. - Constitutional Vitals: Temp Pulse Resp BP Pulse Ox 98.0 F 77 17 122/78 91 07/06/16 10:49 07/06/16 10:49 07/06/16 10:49 07/06/16 10:49 07/06/16 10:49 General appearance: Present: cooperative, A&O X 3, pleasant, no acute distress, answers questions appropriately - Respiratory Respiratory exam: Present: CTAB. Absent: accessory muscle use, rales, rhonchi, wheezes - Cardiovascular Cardiovascular exam: Present: RRR, +S1, +S2. Absent: diastolic murmur, gallop, rubs, systolic murmur - GI/Abdominal GI/Abdominal exam: Present: normal bowel sounds, soft, no peritoneal signs. Absent: distended, tenderness - Extremities Exam Extremities exam: Present: warm, radial pulses palpable and symetrical. Absent : calf tenderness, cyanotic, pedal edema - Skin Skin exam: Present: dry, intact Internal Medicine: Result - Labs CBC & Chem 7: 07/06/16 03:14 07/06/16 03:14 Labs: Short CBC 07/06/16 Range/Units 03:14 WBC 8.2 (4.3-11.1) K/mcL Hgb 12.7 (11.5-15.4) g/dL Hct 39.9 (35.3-44.9) % Plt Count 158 (140-400) K/mcL Neutrophils # 7.2 (1.6-8.9) K/mcL BMP 07/06/16 03:14 Sodium 140 Potassium 3.5 Chloride 109 Carbon Dioxide 25 BUN 13 Creatinine 0.76 Glucose 232 H Calcium 8.8 Consult Discharge Plan - Plan Referrals: Terence Padilla MD [Primary Care Provider] - - Attending Attestation This document has been at least partially created by [employer] recognition technology by Dr. Bowman. Errors in grammar, wording or other phrases may exist. If errors are found after the documentation is signed, they will be addressed individually in the addendum section of this document when appropriate.
[2016-07-07] MEDS: *HR* Heparin 5,000 UNIT/ML VIAL SQ SCH (05:30)
[2016-07-07] MEDS: 0.9 % Sodium Chloride 1,000 ML IVC SCH (05:33)
[2016-07-07] MEDS: Lisinopril 20 MG TABLET PO SCH (08:11)
[2016-07-07] MEDS: Diltiazem CD (24hr) 120 MG CAPSULE PO SCH (08:11)
[2016-07-07] MEDS: Insulin LISPRO 300 UNITS/3 ML VIAL SQ SCH ×2 (08:11→11:54)
[2016-07-07] MEDS ORDERED: Insulin DETEMIR 100 UNIT/ML X5UNITS SQ SCH (09:00)
--- NOTE | 2016-07-07 11:29 | Discharge Summary ---
Date of Encounter: 07/07/16 Time of Encounter: 11:26 - Discharge Diagnosis (1) Ureteral stone Priority: Primary Status: Acute (2) Urinary tract infection Priority: Primary Status: Acute Qualifiers: Urinary tract infection type: acute pyelonephritis Qualified Code(s): N10 - Acute pyelonephritis (3) Sepsis Priority: Primary Status: Suspected Qualifiers: Sepsis type: sepsis due to unspecified organism Qualified Code(s): A41.9 - Sepsis, unspecified organism (4) Hydroureter on left Priority: Primary Status: Acute (5) Hydronephrosis of left kidney Priority: Primary Status: Acute (6) Diabetes Priority: Secondary Status: Chronic Qualifiers: Diabetes mellitus type: type 2 Diabetes mellitus complication status: without complication Diabetes mellitus lobsterman insulin use: without halfway use Qualified Code(s): E11.9 - Type 2 diabetes mellitus without complications (7) Hyperlipemia Priority: Secondary Status: Chronic Qualifiers: Hyperlipidemia type: mixed hyperlipidemia Qualified Code(s): E78.2 - Mixed hyperlipidemia - Discharge Medications Prescriptions: Cefdinir [Omnicef] 300 mg PO BID #24 capsule Home Medications: Metformin [Glucophage] 500 mg PO BID 01/04/15 [History] Simvastatin [Zocor] 10 mg PO HS 01/04/15 [History] Diltiazem CD (24hr) [Cardizem CD] 120 mg PO DAILY 07/05/16 [History] Lisinopril [Zestril] 20 mg PO DAILY 07/05/16 [History] Cefdinir [Omnicef] 300 mg PO BID #24 capsule 07/07/16 [Rx] Allergies/Adverse Reactions: Allergies No Known Allergies Allergy (Unverified 12/31/14 11:52) Date of admission: 07/05/16 18:36 Primary care physician: Terence Padilla MD Discharging clinician: Shae Brady Anticipated date of discharge: 07/07/16 - Patient Status Disposition: Home, Self-Care Condition: Good Functional capacity at discharge: independent ambulation Overall status at discharge: patient is progressing back to baseline - Discharge Instructions Instructions: Kidney Stones (DC) Follow Up With: Terence Padilla MD [Primary Care Provider] - 07/14/16 9:45 am Additional Instructions: F/up with /[facility] in 1 week for ureteral stent removal - Diet and Activity Activity: resume usual activities as tolerated Diet: diabetic diet, low fat, low cholesterol, low salt diet Hospital course: Ms. Sewell is a 70 year old female with the above medical problems who was initially admitted with abdominal and flank pain and persistent nausea. She was noted to have a UTI and CT abdomen/pelvis showed left-sided hydronephrosis, hydroureter, ureteral stone. She was started on IV hydration, IV antibiotics and supportive care. Urology was consulted and patient underwent basket stone retrieval and left ureteral stent placement with significant improvement in symptoms. Blood cultures remained negative, urine culture grows pansensitive Proteus. Case discussed with urology today and patient is medically stable for discharge on oral antibiotics with outpatient urology follow-up in one week for ureteral stent removal. - Time Spent with Patient Total time spent providing and/or coordinating discharge services: Greater than 30 minutes (45 min) - Constitutional Vitals: Temp Pulse Resp BP Pulse Ox 98.0 F 75 16 130/87 92 07/07/16 06:45 07/07/16 06:45 07/07/16 06:45 07/07/16 06:45 07/07/16 06:45 General appearance: Present: A&O X 3, answers questions appropriately - Respiratory Respiratory exam: Present: CTAB. Absent: accessory muscle use, rales, rhonchi, wheezes - Cardiovascular Cardiovascular exam: Present: RRR, +S1, +S2. Absent: diastolic murmur, gallop, rubs, systolic murmur - VTE Documentation of Mechanical Device: Intermittent pneumatic compression device
[2016-07-07 11:42] VITALS: BP 116/71
== END 2016-07-07 12:38 | disposition home or self-care (01) | DRG 710 ==
LOC: EMEROO 13:43 → 3BNU 13:43 → SUATTDRO 18:36
PROVIDERS: ADMIT Internal Medicine; ATTEND Internal Medicine